=== PATIENT | male | born 2000 | race Caucasian/White ===

== ENCOUNTER 2022-08-28 18:25 | Outpatient (CLI) | payer MEDICAID ==
--- NOTE | 2022-08-29 12:03 | Ultrasound Report ---
PROCEDURE: Scrotal ultrasound INDICATIONS: TESTICULAR PAIN TECHNIQUE: Real-time scanning was performed of the scrotum and testicles, with image documentation. Color and p ulse Doppler interrogation was performed of both testicles. COMPARISON: None. FINDINGS: Right: Testicle is normal in size at 5.1 x 2.6 x 3.1 cm, and homogenous in echotexture. Epididymis is normal in overall size and morphology, and a small 3 mm epididymal cyst. Small hydrocele. Overlyi ng scrotal skin is normal in thickness. Left: Testicle is normal in size at 5.0 x 2.5 x 3.5 cm, and homogeneous in echotexture. Epididymis is normal in overall size and morphology. Small hydrocele and varicocele. Overlying scrotal skin is normal in thickness. Doppler: Color and pulse Doppler demonstrate normal and symmetric arterial flow in both testicles. IMPRESSION: Small bilateral hydroceles, right greater than left. No evidence of torsion Reviewed by: Goran Montana MD on 08/29/2022 11:01 AM [facility] Approved by: Goran Montana MD on 08/29/2022 11:01 AM [facility] Station ID: [id number]
== END 2022-08-28 18:26 | disposition home or self-care (01) ==
LOC: DI 18:25
PROVIDERS: ATTEND Physician Assistant
DX: N43.3 Hydrocele, unspecified (principal)

== ENCOUNTER 2023-03-09 17:37 | Outpatient (CLI) | payer MEDICAID ==
[2023-03-09 20:51] LABS: ALBUMIN 4.7 g/dL (3.2-5.5); ALBUMIN/GLOBULIN RATIO 2.2 (1.0-2.2); BILIRUBIN,TOTAL 0.4 mg/dL (0.2-1.0); CALCIUM 9.6 mg/dL (8.5-10.3); CREATININE 1.1 mg/dL (0.6-1.3); TOTAL PROTEIN 6.8 g/dL (6.4-8.9)
[2023-03-09 21:01] LABS: THYROID STIMULATING HORMONE 1.1 uIU/mL (0.34-5.60)
[2023-03-09 21:10] LABS: BASOPHILS % (AUTO) 0.7 %; EOSINOPHILS # (AUTO) 0.2 10^3/uL (0.0-0.7); EOSINOPHILS % (AUTO) 3.4 %; HCT - HEMATOCRIT 39.1 % (42.0-52.0); HGB - HEMOGLOBIN 13.9 g/dL (14.0-18.0); LYMPHOCYTES # (AUTO) 2.2 10^3/uL (1.5-3.5); LYMPHOCYTES % (AUTO) 39.4 %; MEAN CORPUSCULAR HEMOGLOBIN 32.1 pg (27.0-31.0); MEAN CORPUSCULAR HGB CONC 35.5 g/dL (32.0-36.0); MEAN CORPUSCULAR VOLUME 90.3 fL (80.0-94.0); MEAN PLATELET VOLUME 12.1 fL (7.4-11.4); MONOCYTES # (AUTO) 0.4 10^3/uL (0.0-1.0); MONOCYTES % (AUTO) 7.1 %; NEUTROPHILS # (AUTO) 2.8 10^3/uL (1.5-6.6); NEUTROPHILS % (AUTO) 49.2 %; PLT - PLATELET COUNT 183 10^3/uL (130-450); RED BLOOD COUNT 4.33 10^6/uL (4.70-6.10); RED CELL DISTRIBUTION WIDTH 11.7 % (12.0-15.0); WHITE BLOOD COUNT 5.6 x10^3/uL (4.8-10.8)
== END 2023-03-09 17:38 | disposition home or self-care (01) ==
LOC: LAB.N 17:37
PROVIDERS: ATTEND Physician Assistant
DX: I10 Essential (primary) hypertension (principal)
CPT/HCPCS: 36415; 80053; 84443; 85025

== ENCOUNTER 2023-04-24 11:22 | Emergency (ER) | payer MEDICAID ==
[2023-04-24 11:30] VITALS: BP 130/69; O2SAT 100
--- NOTE | 2023-04-24 12:07 | XRAY Report ---
PROCEDURE: Foot 3 View RT INDICATIONS: Trauma TECHNIQUE: 3 views of the foot were acquired. COMPARISON: None. FINDINGS: Bones: No acute fractures or dislocations. No suspicious bony lesions. Soft tissues: No suspicious soft tissue calcifications. IMPRESSION: No acute osseous abnormality. If there is clinical concern or persistent symptoms, additional imaging such as repeat radiographs or advanced imaging (e.g. CT, MRI) may be helpful for further evaluation. Reviewed by: Sean Valentino MD on 04/24/2023 12:05 PM [facility] Approved by: Sean Valentino MD on 04/24/2023 12:05 PM [facility] Station ID: [id number]
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
== END 2023-04-24 12:27 | disposition home or self-care (01) ==
LOC: ED 11:22
DX: S90.112A Contusion of left great toe without damage to nail, initial encounter (principal); X58.XXXA Exposure to other specified factors, initial encounter; Y93.18 Activity, surfing, windsurfing and boogie boarding; F17.200 Nicotine dependence, unspecified, uncomplicated
CPT/HCPCS: 99283